=== PATIENT | female | born 1950 | race Caucasian/White ===

== ENCOUNTER 2019-05-13 12:45 | Outpatient (CLI) | payer MEDICARE, MEDICAID | END 2019-05-13 23:59 | disposition home or self-care (01) | LOC: CARD 12:45 | PROVIDERS: ATTEND Nurse Practitioner Psychiatric/Mental Health | DX: R41.0 Disorientation, unspecified (principal) | CPT/HCPCS: 95819 ==

== ENCOUNTER 2019-12-28 08:26 | Day surgery (SDC) | payer MEDICARE, MEDICAID ==
[~2019-12-28] VITALS: Ht 162.6 cm; Wt 73.9 kg
[2019-12-28] MEDS ORDERED: BUPIVACAINE/PF 0.5% ONE (09:01)
[2019-12-28] MEDS ORDERED: CHLORHEXIDINE 15 ML UDC MM STA (09:25)
[2019-12-28] MEDS ORDERED: LACTATED RINGERS 1,000 ML IV SCH (09:25)
[2019-12-28] MEDS ORDERED: OMEP-110 PO (09:27)
[2019-12-28] MEDS ORDERED: CALC-451 PO (09:27)
[2019-12-28] MEDS ORDERED: CITA40TA12 PO (09:27)
[2019-12-28] MEDS ORDERED: DIPH25CA61 PO (09:27)
[2019-12-28] MEDS ORDERED: NAPR-685 PO (09:27)
[2019-12-28 09:29] VITALS: BP 158/88
[2019-12-28] MEDS ORDERED: DULA1.5P INJ (09:45)
[2019-12-28 10:13] LABS: ALANINE AMINOTRANSFERASE 24 U/L (12-78); ALBUMIN 3.9 g/dL (3.4-5.0); ANION GAP 7 mmol/L (5-15); CALCIUM 9.1 mg/dL (8.5-10.1); CHLORIDE 111 mmol/L (98-107); CREATININE 0.94 mg/dL (0.55-1.02)
[2019-12-28 10:16] LABS: ALKALINE PHOSPHATASE 95 U/L (45-117); BILIRUBIN,TOTAL 0.6 mg/dL (0.2-1.0); TOTAL PROTEIN 7.3 g/dL (6.4-8.2)
[2019-12-28] MEDS ORDERED: LIDOCAINE 1%, 20ML ONE (10:25)
[2019-12-28] MEDS ORDERED: HYDROcodone/APAP 5/325 TABLET PO PRN (10:30)
== END 2019-12-28 12:05 | disposition home or self-care (01) ==
LOC: OUT 08:26
PROVIDERS: ATTEND Surgery Surgery of the Hand
DX: G56.01 Carpal tunnel syndrome, right upper limb (principal); Z11.59 Encounter for screening for other viral diseases; M65.331 Trigger finger, right middle finger; M65.321 Trigger finger, right index finger; M65.351 Trigger finger, right little finger; I10 Essential (primary) hypertension; M79.7 Fibromyalgia; M19.90 Unspecified osteoarthritis, unspecified site; Z79.899 Other long term (current) drug therapy; Z87.891 Personal history of nicotine dependence; Z98.890 Other specified postprocedural states; Z82.61 Family history of arthritis; Z82.49 Family history of ischemic heart disease and other diseases of the circulatory system
CPT/HCPCS: 26055; 36415; 64721; 80053; 82962; 87635; 93005; J7120

== ENCOUNTER → 2020-11-09 | Outpatient (CLI) | payer MEDICARE, MEDICAID ==
[~2020-11-09] MED LIST: CALC-451 PO; CITA40TA12 PO; CLON0.1T22 PO; DIPH25CA61 PO; DULA1.5P INJ; MONT10TA17 PO; NAPR-685 PO; OMEP-110 PO
[2020-11-09 15:32] LABS: BASOPHILS % (AUTO) 1 % (0-1); EOSINOPHILS % (AUTO) 2 % (1-7); LYMPHOCYTES % (AUTO) 45 % (22-44); MEAN CORPUSCULAR HEMOGLOBIN 28.7 pg (27.0-34.8); MEAN CORPUSCULAR HGB CONC 33.3 g/dL (32.4-35.8); MEAN PLATELET VOLUME 9.2 fL (7.4-10.4); MONOCYTES % (AUTO) 8 % (2-9); NEUTROPHILS % (AUTO) 44 % (42-75); PLATELET COUNT 223 x10^3/uL (130-400); RED BLOOD COUNT 4.35 x10^6/uL (3.82-5.3)
[2020-11-09 15:34] LABS: ALANINE AMINOTRANSFERASE 16 U/L (12-78); ALBUMIN 3.6 g/dL (3.4-5.0); ANION GAP 6 mmol/L (5-15); CALCIUM 8.5 mg/dL (8.5-10.1); CHLORIDE 110 mmol/L (98-107); CREATININE 0.97 mg/dL (0.55-1.02)
[2020-11-09 15:36] LABS: ALKALINE PHOSPHATASE 111 U/L (45-117); BILIRUBIN,TOTAL 0.4 mg/dL (0.2-1.0)
[2020-11-09 15:57] LABS: MD SCAN
== END | disposition home or self-care (01) ==
LOC: STAR 14:18
PROVIDERS: ATTEND Orthopaedic Surgery
DX: Z01.812 Encounter for preprocedural laboratory examination (principal); Z20.822 Contact with and (suspected) exposure to COVID-19; M16.11 Unilateral primary osteoarthritis, right hip
CPT/HCPCS: 36415; 80053; 85025; 87081; 93005; U0003

== ENCOUNTER 2020-11-15 08:39 | Observation (INO) | payer MEDICARE, MEDICAID ==
[~2020-11-15] VITALS: Ht 162.6 cm; Wt 67.0 kg
[2020-11-15] MEDS ORDERED: MIDAZOLAM 1 MG/ML, 2ML ONE (09:09)
[2020-11-15] MEDS ORDERED: FENTANYL PF 250 MCG/5ML ONE (09:09)
[2020-11-15 09:17] VITALS: BP 148/77
[2020-11-15] MEDS ORDERED: LACTATED RINGERS 1,000 ML IV SCH (09:30)
[2020-11-15] MEDS ORDERED: CHLORHEXIDINE 15 ML UDC PO ONE (09:30)
[2020-11-15] MEDS ORDERED: SCOPOLAMINE 1MG PATCH TD SCH (09:30)
[2020-11-15] MEDS ORDERED: KETOROLAC 60 MG/2 ML ONE (09:46)
[2020-11-15] MEDS ORDERED: SODIUM CHLORIDE 0.9% 50 ML ONE (09:46)
[2020-11-15] MEDS ORDERED: EPINEPHRINE 1 MG/ML, 1ML ONE (09:46)
[2020-11-15] MEDS ORDERED: TRANEXAMIC ACID 100 MG/ML, 10ML ONE (09:46)
[2020-11-15] MEDS ORDERED: ROPIvacaine/PF 0.2%, 20 ML ONE (09:46)
[2020-11-15] MEDS ORDERED: hydrALAzine 20 MG/ML, 1ML IV PRN (10:00)
[2020-11-15] MEDS ORDERED: PROMETHAZINE 25 MG/ML, 1ML IVPush PRN (10:00)
[2020-11-15] MEDS ORDERED: LABETALOL 5MG/ML, 20ML IV PRN (10:00)
[2020-11-15] MEDS ORDERED: ACETAMINOPHEN 325 MG TABLET PO PRN (10:00)
[2020-11-15] MEDS ORDERED: MEPERIDINE/PF 25MG/0.5ML IVPush PRN (10:00)
[2020-11-15] MEDS ORDERED: OXYcodone 5 MG/5 ML ORAL.SOL UDC PO PRN (10:00)
[2020-11-15] MEDS ORDERED: HYDROmorphone 1 MG/ML, 1ML INJ IVPush PRN (10:00)
[2020-11-15] MEDS ORDERED: LORazepam 2 MG/ML, 1ML IVPush PRN (10:00)
[2020-11-15] MEDS ORDERED: PROPOFOL 10 MG/ML, 20ML ONE (11:26)
[2020-11-15] MEDS ORDERED: LIDOCAINE-MPF 2% ,5ML ONE (11:26)
[2020-11-15] MEDS ORDERED: ROCURONIUM 10MG/ML,5ML ONE (11:26)
[2020-11-15] MEDS ORDERED: DEXAMETHASONE 4 MG/ML, 1ML ONE (11:26)
[2020-11-15] MEDS ORDERED: GLYCOPYRROLATE 0.2MG/1ML, 5ML ONE (11:26)
[2020-11-15] MEDS ORDERED: CEFAZOLIN 1,000 MG ONE (11:26)
[2020-11-15] MEDS ORDERED: ONDANSETRON 2MG/ML, 2ML ONE (11:26)
[2020-11-15] MEDS ORDERED: NEOSTIGMINE 1 MG/ML, 10ML ONE (11:26)
[2020-11-15] MEDS ORDERED: ONDANSETRON 4 MG TABLET PO PRN (12:00)
[2020-11-15] MEDS ORDERED: HYDROmorphone 1 MG/ML, 1ML INJ IV PRN (12:00)
[2020-11-15] MEDS ORDERED: ACETAMINOPHEN 650 MG/20.3 ML UDC ONE (12:05)
[2020-11-15] MEDS ORDERED: hydrALAzine 20 MG/ML, 1ML ONE (12:05)
[2020-11-15] MEDS ORDERED: FENTANYL PF 100 MCG/2ML ONE ×2 (12:05→12:07)
[2020-11-15] MEDS ORDERED: OXYcodone 5 MG/5 ML ORAL.SOL UDC ONE (12:06)
[2020-11-15] MEDS: FENTANYL PF 100 MCG/2ML IV PRN ×2 (12:15→12:35)
[2020-11-15] MEDS ORDERED: TRANEXAMIC ACID 1,000 MG in SODIUM CHLORIDE 0.9% 100 ML IVPB ONE (13:00)
[2020-11-15] MEDS ORDERED: METHOCARBAMOL 1,000 MG in DEXTROSE 5% 100 ML IV ONE (13:00)
[2020-11-15 13:10] VITALS: BP 131/73
[2020-11-15 18:21] VITALS: BP 150/71
[2020-11-15] MEDS: OXYcodone IR 5MG TABLET PO PRN ×2 (18:45→23:06)
[2020-11-15] MEDS: CEFAZOLIN PMX 1GM/50ML 50 ML IVPB SCH (19:52)
[2020-11-15] MEDS: ACETAMINOPHEN 325 MG TABLET PO PRN (19:56)
[2020-11-15 20:43] VITALS: BP 129/57
[2020-11-16 00:30] VITALS: BP 107/63
[2020-11-16] MEDS: ACETAMINOPHEN 325 MG TABLET PO PRN (02:56)
[2020-11-16] MEDS: OXYcodone IR 5MG TABLET PO PRN ×2 (02:57→08:19)
[2020-11-16] MEDS: CEFAZOLIN PMX 1GM/50ML 50 ML IVPB SCH (03:42)
[2020-11-16 05:37] VITALS: BP 130/71
[2020-11-16 06:30] VITALS: BP 119/66
[2020-11-16] MEDS ORDERED: ASPI81TA45 PO (07:30)
[2020-11-16] MEDS ORDERED: OXYC5TAB98 PO (07:30)
[2020-11-16] MEDS ORDERED: DOCU-131 PO (07:30)
[2020-11-16] MEDS ORDERED: DOCUSATE 100 MG CAPSULE PO SCH (09:00)
[2020-11-16 10:40] VITALS: BP 147/65
[2020-11-16] MEDS ORDERED: ASPIRIN 81 MG TABLET EC PO SCH (18:00)
== END 2020-11-16 12:00 | disposition home or self-care (01) ==
LOC: OUT 08:39 → ORIP 11:55 → 4NE 13:22 → DCLOUNGE 11-16 11:54
PROVIDERS: ADMIT Orthopaedic Surgery; ATTEND Orthopaedic Surgery
DX: M16.11 Unilateral primary osteoarthritis, right hip (principal); M21.70 Unequal limb length (acquired), unspecified site; M79.7 Fibromyalgia; K21.9 Gastro-esophageal reflux disease without esophagitis; I10 Essential (primary) hypertension; F32.9 Major depressive disorder, single episode, unspecified; Z79.899 Other long term (current) drug therapy; Z96.641 Presence of right artificial hip joint; Z87.891 Personal history of nicotine dependence
CPT/HCPCS: 27130; 36415; 72170; 86850; 86900; 96365; 96366; 97110; 97161; C1713; C1776; G0378; J0171; J0360; J0690; J1100; J1885; J2250; J2405; J2704; J2710; J2795; J2800; J3010; J3490; J7120